=== PATIENT | male | born 1980 | race Caucasian/White ===

== ENCOUNTER 2020-04-12 06:23 | Emergency (ER) | payer OTHER, SELFPAY ==
[2020-04-12 06:24] VITALS: BP 126/90; PULSE 86; RESP 16; TEMP 36.4; O2SAT 99; BMI 24.7
--- NOTE | 2020-04-12 06:40 | ED.VISSUMM ---
- ER Visit Summary Date of Service: 04/12/20 Chief Complaint: Rash History of Present Illness: The patient is a 39 M with no primary care physician. He reports that he has a rash on his hands that began 2 weeks ago. States that it itches horribly. He believes that this is from exposure to poison harper on wood that he was cutting at work. Patient denies any change in soap, shampoo, laundry detergent, or fabric softener. No new clothing, bedding, carpeting, or pets. No new medications in the past month. Patient lives at home with his . She does not have a rash. He denies any constitutional symptoms. No fever, chills, nausea, or vomiting. Physical Examination: Vitals: Stable. Afebrile. General: Well-nourished and well-developed. Head: Normocephalic atraumatic. Neck: Supple, no lymphadenopathy. No JVD. Nontender. Cardiovascular: Regular rate and rhythm. No murmurs. Respiratory: No respiratory distress. Clear to auscultation bilaterally. Abdominal: Soft, nontender, nondistended, normal bowel sounds. No guarding, rebound, or peritoneal signs. Back: Nontender. Extremities: Nontender, no edema. Skin: Multiple 1 to 2 mm scabbed lesions to the back of both hands. These are not in between his digits. There is no burrowing. This does not look typical of scabies. Only extends up to the wrist bilaterally. He has minimal erythema to his maxilla bilaterally.. Neurologic: Alert and oriented ?3. Cranial nerves II through XII are intact. Normal strength and sensation. Psych: Normal affect. Emergency Department Course and Treatment: Had a prolonged discussion the patient this time I cannot tell him exactly what this is from. He is given a dose of Kenalog IM. He is instructed to get new gloves for work. He is instructed to wash his face mask. Treatment Plan: Patient will be discharged instructions to follow-up with Dr. Knutson in 1 week if not improving. Return to the emergency department for any worsening symptoms. Disposition: To home in improved and stable condition. Impression: 1 1. Contact dermatitis. This note was generated with [employer] dictation software. It may contain incorrect words, spelling, and punctuation that were not noted in review of the chart prior to signing ED Disposition - Plan for ED Patient: Instructions: ED Dermatitis Poison [place] Referrals: Cori Knutson MD [STAFF PHYSICIAN] - 1 Week if not improving
[2020-04-12] MEDS: Triamcinolone Acetonide 40 MG/ML Vial 80 MG IM (06:47)
[2020-04-12 06:50] VITALS: RESP 16
== END 2020-04-12 07:34 | disposition home or self-care (01) ==
LOC: ED 07:16
PROVIDERS: Emergency Provider Emergency Medicine
DX: L25.9 Unspecified contact dermatitis, unspecified cause (principal); Z72.0 Tobacco use
CPT/HCPCS: 96372; 99282

== ENCOUNTER 2020-05-10 06:58 | Emergency (ER) | payer OTHER, SELFPAY ==
[2020-05-10 06:59] VITALS: BP 129/85; PULSE 84; RESP 16; TEMP 36.4; O2SAT 100; BMI 24.2
--- NOTE | 2020-05-10 07:11 | ED.DCSUM_ITS ---
History of Present Illness Chief Complaint: Rash Informant: Patient, Family Onset: Days - 1-2 Context: Sudden Onset Timing: Waxes and wanes Quality: itchy red rash Location: trunk and groin Current Severity: Moderate Maximum Severity: Moderate Worsened by: nothing known Relieved by: benadryl temporarily Associated Symptoms: none; no swelling, sob, trouble swallowing, pain, lightheaded/syncope Narrative: Patient has had a rash that has been responding to Benadryl, it has been off and on for the last couple days. No known exposures. He has not been in poison [place]i and is not quite as itchy as poison tomi was in the past, denies any new soaps or shampoos, laundry detergents, etc. No topicals in this area. States he woke up with it one morning. The next day he suddenly had it while he was playing video games. Nothing new today, just keeps coming back. Denies any symptoms of anaphylaxis. Past Medical History - Allergies and Home Meds Allergies/Adverse Reactions: Allergies No Known Allergies Allergy (Verified 04/12/20 06:27) Primary Care Physician: Care Physician,No Primary [Primary Care Provider] - Past Medical History: None Lives: With Family Smoking Status: Current every day smoker Review of Systems General: Denies: Chills, Fever, Sweats Eyes: Denies: Visual changes - bilaterally, Diplopia ENT: Denies: Rhinorrhea, Sore throat Cardiovascular: Denies: Chest pain, Palpitations Respiratory: Denies: Dyspnea, Cough, Dyspnea on exertion Gastrointestinal: Denies: Abdominal pain, Nausea, Vomiting, Diarrhea, Melena, Hematochezia Genitourinary: Denies: Dysuria, Hematuria, Frequency Musculoskeletal: Denies: Back pain, Extremity Pain Skin: Reports: Rash. Denies: Wounds Neurological: Denies: Headache, Weakness, Numbness Physical Exam Vital Signs/Narrative: Vital Signs Temp Pulse Resp BP Pulse Ox 05/10/20 06:59 97.6 F L 84 16 129/85 H 100 Inital Vital Signs reviewed: Yes General: Well nourished, Well developed, No Acute Distress Head: Normocephalic, Atraumatic Eyes: Perrl, EOMI ENT: Moist mucous membranes, No rhinorrhea, - - No angioedema. No stridor. No hoarseness. Neck: Supple, Nontender Cardiovascular: Regular rate, Regular rhythm. Negative for: Tachycardia Respiratory: No distress, CTA bilaterally Extremities: Nontender, No edema Skin: Normal color, No Trauma, Rash - Scattered urticaria chest, less on abdomen, some on low back. Blanching, nontender, some raised, no other lesions or bullae/petechia. Neurological: Alert, Oriented x3, Cranial nerves II-XII grossly intact, Normal Strength, Normal Sensation, Normal Gait Psychological: Normal affect, Normal Mood Diagnostic/Tx/Re-eval - Medical Decision Making Patient states he will use Benadryl as needed, he is okay with starting prednisone now given a prescription, advised to follow-up if he has persistent recurrence. Etiology is unknown but he is not having any signs or symptoms of an anaphylactoid reaction. ED Disposition - Plan for ED Patient: Disposition: Home or Assisted Living Diagnosis: Allergic reaction, Urticaria Instructions: ED URTICARIA Prescriptions: Prednisone [Deltasone] 40 mg PO DAILY #10 tab Transmission Status: Pending to [facility]30 Referrals: Doctor,Your [STAFF PHYSICIAN] - 1 Week if not improving
[2020-05-10] MEDS: predniSONE 20 MG Tablet 40 MG PO (07:30)
== END 2020-05-10 07:35 | disposition home or self-care (01) ==
LOC: ED 07:25
PROVIDERS: Emergency Provider Emergency Medicine
DX: L50.0 Allergic urticaria (principal); F17.200 Nicotine dependence, unspecified, uncomplicated
CPT/HCPCS: 99282

== ENCOUNTER 2021-06-29 18:35 | Emergency (ER) | payer OTHER, SELFPAY ==
[2021-06-29 18:35] VITALS: BP 114/78; PULSE 86; PULSE 89; RESP 16; TEMP 36.8; O2SAT 98; O2SAT 99; BMI 22.1
--- NOTE | 2021-06-29 19:30 | CM.ED ---
NOEMI Note Referral Source: Case Find Referral Reason: No PCP (Primary Care Provider) NOEMI met with patient. He reports he is currently in the and has insurance. Patient said that he also has insurance through his employer. NOEMI provided patient with list of [facility] Physician Directory with active Medical staff. No further issues or needs identified at this time. NOEMI remains available. Plan: Provided patient with list of [facility] Physician Directory Daniella GRIER
--- NOTE | 2021-06-29 20:44 | EDS_ITS ---
HPI History of Present Illness Chief Complaint: Rash Informant: patient Narrative Narrative: Patient is a 40-year-old male without any significant past medical history presenting with rash to his neck and face as well as right elbow pain. Patient states he woke up today and had redness and bumps on his neck and up to his right cheek. Earlier he had some swelling and redness of his left eyelid area. Patient denies any associated pain. He denies any fever or chills. He never had a reaction like this before. Denies any new soaps or clothing. His recommend he come to the emergency room for further evaluation. Patient states that he once had hives on his abdomen that he took Benadryl for but they never found the reason of his hives. Patient denies any associated itching. In addition he notes he has had worsening pain of his right elbow for the past 2 weeks. 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 He intermittently takes ibuprofen with some relief of his pain. He denies associated numbness or tingling everyone told does get pain that radiates from his elbow down to his hand. No associated rash to the arm. No new injury. No swelling noted. No other complaints at this time. [facility] Medical History (Updated 06/29/21 @ 20:[address] Estefania Lorenzo, ) History of broken finger History of broken nose Home Medications prednisone 40 mg PO DAILY #8 tab 06/29/21 [Rx Last Taken Unknown] Allergy/AdvReac Type Severity Reaction Status Date / Time No Known Allergies Allergy Verified 06/29/21 19:21 Surgical History (Updated 06/29/21 @ 19:19 by Georgie Haile) [place] teeth removed Social History Smoking Status: Current every day smoker tobacco type: cigarettes ROS ROS ED Constitutional Constitutional ED: Denies chills or fever(s) Eyes Eyes: Denies blurry vision or change in vision ENT ENT ED: Denies ear pain, rhinorrhea or sore throat Cardiovascular Cardiovascular: Denies chest pain or palpitations Respiratory/Chest Respiratory/Chest: Denies cough or dyspnea Gastrointestinal Gastrointestinal: Denies abdominal pain, nausea or vomiting Musculoskeletal Musculoskeletal: Reports arthralgias; Denies myalgias Integumentary Reports rash Neurologic Neurologic: Denies headache(s) or weakness EXAM Physical Exam Const Vital Signs: 06/29/21 18:35 Temperature 98.3 F Temperature Source Temporal Pulse Rate 86 Respiratory Rate 16 Blood Pressure 114/78 Blood Pressure Mean 90 Pulse Ox 99 Oxygen Delivery Method Room Air Positive well nourished and well developed General Appearance ED: well developed HEENT Reports TM's clear and moist mucous membranes Tympanic Membrane ED: Yes TM's clear Eyes PERRL and EOMs intact bilaterally Neck no lymphadenopathy and supple General: Negative for tenderness Chest Wall inspection of chest normal Resp normal respiratory effort and clear to auscultation bilaterally Cardio regular rate, regular rhythm and no murmurs GI normal to inspection, nondistended, normoactive bowel sounds Back/Spine no CVA tenderness Extremity Extremity Narrative: Right elbow?no deformity. Patient with tenderness palpation just medial to the radial head. Worse with repetitive movements. No joint effusion appreciated. No decreased range of motion. No pinpoint bony tenderness. Normal strength and sensation of the right upper extremity. General Extremety ED: Yes tenderness; Negative for edema General Extremity: Negative for edema Neuro oriented x3 and no sensory deficits noted Sensorium / Orientation: alert Motor Exam: Negative for general weakness Psych mental status grossly normal Skin Skin Narrative: No petechia. Negative Nikolsky sign. Rash is most consistent with the allergic dermatitis. Rashes: rashes noted face maculopapular 4 right cheek erythematous dry nontender, neck, cheek Narrative: Scattered papular raised erythematous rash, nontender MDM MDM MDM Narrative Medical decision making narrative: Patient evaluated for rash x1 day on his bilateral neck and right cheek. He is also had 2 weeks of right elbow pain. Worse with passive movements. Rash appears to be some type of allergic reaction. He does not have any mucosal involvements. No petechia negative Nikolsky sign. He is afebrile. The rash is not consistent with an infection. In addition patient likely has lateral epicondylitis of the right elbow. Patient is started on a course of steroids which should help with both. He is counseled that he can use hydrocortisone ointment to his face and neck. Counseled on return precautions. Patient verbalizes agreement understand with this plan. Patient with a work note per her request. Discharge Plan Triage Chief Complaint: Rash ED Provider: Estefania Lorenzo Dx/Rx/DC Orders Clinical Impression: Rash of face, Rash of neck, Elbow pain, right Instructions: ED General Allergic Reactions, ED Contact Dermatitis, ED Tennis Elbow Prescriptions: New prednisone 20 mg tablet 40 mg PO DAILY Qty: 8 RF: 0 Primary Care Provider: Care Physician,No Primary Referrals: Owen Greenberg MD [STAFF PHYSICIAN] - Chapito Pitts MD [STAFF PHYSICIAN] - Care Physician,No Primary [Primary Care Provider] - Disposition Disposition: Home, Self Care Discharge Date/Time: 06/29/21 20:59
[2021-06-29] MEDS: predniSONE 20 MG Tablet 40 MG PO (20:49)
== END 2021-06-29 20:59 | disposition home or self-care (01) ==
PROVIDERS: Emergency Provider Emergency Medicine
DX: R21 Rash and other nonspecific skin eruption (principal); M25.521 Pain in right elbow; F17.210 Nicotine dependence, cigarettes, uncomplicated
CPT/HCPCS: 99283

== ENCOUNTER 2021-09-04 19:41 | Emergency (ER) | payer OTHER, SELFPAY ==
[2021-09-04 19:42] VITALS: BP 123/76; PULSE 89; RESP 16; TEMP 36.3; O2SAT 99; BMI 22.6
--- NOTE | 2021-09-04 22:18 | EDS_ITS ---
HPI History of Present Illness Chief Complaint: Upper Extremity Injury Informant: patient Occured/Mechanism Comment: Ongoing issue of right elbow pain. 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 He complains of pain because of intermittent persistent waxing and waning right elbow pain. He states he was seen at [facility] and had x-rays and was told there is no acute abnormality noted. He denies paresthesia, anesthesia or motor weakness. Tetanus Immunization: 5-10 years Prior similar symptoms: Yes Recent Illness/Hospitalization: No [facility] Medical History History of broken finger History of broken nose HLD (hyperlipidemia) Home Medications atorvastatin 10 mg PO DAILY 09/04/21 [History Last Taken Unknown] naproxen 500 mg PO BID #20 tab 09/04/21 [Rx Last Taken Unknown] Allergy/AdvReac Type Severity Reaction Status Date / Time No Known Allergies Allergy Verified 09/04/21 19:44 Surgical History [place] teeth removed Social History (Updated 09/04/21 @ 22:[address] Levi Mitchell MD) household members: significant other Smoking Status: Current every day smoker tobacco type: cigarettes alcohol intake: current alcohol intake frequency: other substance use type: does not use ROS ROS ED Constitutional Constitutional ED: Denies chills, fever(s), subjective or sweats Eyes Eyes: Denies blurry vision, change in vision or diplopia Musculoskeletal Musculoskeletal: Reports other Details: Right elbow pain ; Denies back pain, myalgias or neck pain Integumentary Denies rash Neurologic Neurologic: Denies paresthesias or weakness Hematologic/Lymphatic Hematologic/Lymphatic: Denies easy bleeding or easy bruising EXAM Physical Exam Const Vital Signs: 09/04/21 19:42 Temperature 97.4 F L Temperature Source Temporal Pulse Rate 89 Respiratory Rate 16 Blood Pressure 123/76 H Blood Pressure Mean 91 Pulse Ox 99 Oxygen Delivery Method Room Air Positive well nourished and well developed General Appearance ED: well developed and NAD HEENT normocephalic and atraumatic Eyes PERRL and EOMs intact bilaterally Neck No full ROM and supple Resp normal respiratory effort Cardio regular rate and regular rhythm Extremity normal to inspection and full ROM Extremity Narrative: Having the patient flex against resistance causes no discomfort. Having him since pronate against resistance causes minimal discomfort. Pressure over the lateral epicondyle with patient flexing and pronating its resistance causes him exquisite pain and reproduces his pain. Median, radial and ulnar function intact. Radial pulses palpable. General Extremety ED: Negative for edema General Extremity: Negative for edema Neuro oriented x3, CN's II-XII intact bilaterally and no focal motor deficits Sensorium / Orientation: alert Psych mental status grossly normal Skin Lesions: no lesions Rashes: no rashes Trauma: no lacerations or abrasions MDM MDM MDM Narrative Medical decision making narrative: Patient had imaging at outside facility. This would not repeated. Patient's history and physical exam suggest lateral epicondylitis. Patient has no contraindication to NSAIDs. Discharge Plan Triage Chief Complaint: Upper Extremity Injury ED Provider: Levi Mitchell Dx/Rx/DC Orders Clinical Impression: Lateral epicondylitis, right elbow Instructions: ED Tennis Elbow Prescriptions: New naproxen 500 MG tablet 500 mg PO BID Qty: 20 RF: 0 No Action atorvastatin 10 mg tablet 10 mg PO DAILY RF: 0 Primary Care Provider: Care Physician,No Primary Referrals: Care Physician,No Primary [Primary Care Provider] - Doctor,Your [STAFF PHYSICIAN] - 10-14 Days if not better Activity Restrictions/Additional Instructions: 1. Recommended purchasing van from pharmacy for tennis elbow. 2. Take Naprosyn as instructed 3. If no improvement in 7 days contact [facility] for [facility] to [facility]. Disposition Disposition: Home, Self Care
[2021-09-04] MEDS: Naproxen 250 MG Tablet 500 MG PO (22:38)
[2021-09-04 22:41] VITALS: BP 118/54; PULSE 74; RESP 16; O2SAT 98
== END 2021-09-04 22:45 | disposition home or self-care (01) ==
PROVIDERS: Emergency Provider Emergency Medicine
DX: M77.11 Lateral epicondylitis, right elbow (principal); E78.5 Hyperlipidemia, unspecified; F17.210 Nicotine dependence, cigarettes, uncomplicated; Z79.899 Other long term (current) drug therapy; Z79.1 Long term (current) use of non-steroidal anti-inflammatories (NSAID)
CPT/HCPCS: 90471; 99284

== ENCOUNTER 2022-02-04 22:08 | Emergency (ER) | payer OTHER, SELFPAY ==
[2022-02-04 22:09] VITALS: BP 114/82; PULSE 82; RESP 15; TEMP 35.8; O2SAT 97; BMI 22.6
--- NOTE | 2022-02-04 22:27 | EX.ED.DYSGE1 ---
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 He states he also has a few lesions on his face and his neck. He states no one else at home has the rash. He denies any fevers chills difficulty breathing or swallowing. He states he has had this happen in the past and has needed steroids to resolve the symptoms and secondary to this presents for evaluation. [facility] Medical History History of broken finger History of broken nose HLD (hyperlipidemia) Home Medications atorvastatin 10 mg PO DAILY 09/04/21 [History Last Taken Unknown] naproxen 500 mg PO BID #20 tab 09/04/21 [Rx Last Taken Unknown] prednisone 10 mg PO DAILY 12 Days #30 tab 02/04/22 [Rx Last Taken Unknown] Allergy/AdvReac Type Severity Reaction Status Date / Time No Known Allergies Allergy Verified 02/04/22 22:13 Surgical History [place] teeth removed Social History (Updated 09/04/21 @ 22:[address] Levi Mitchell MD) household members: significant other Smoking Status: Current every day smoker tobacco type: cigarettes alcohol intake: current alcohol intake frequency: other substance use type: does not use ROS ROS ED Constitutional Constitutional ED: Denies chills or fever(s) ENT ENT ED: Denies sore throat Cardiovascular Cardiovascular: Denies chest pain Respiratory/Chest Respiratory/Chest: Denies cough or dyspnea Gastrointestinal Gastrointestinal: Denies abdominal pain, diarrhea, nausea or vomiting Genitourinary Genitourinary ED: Denies dysuria Musculoskeletal Musculoskeletal: Denies myalgias Integumentary Reports rash Neurologic Neurologic: Denies headache(s) Hematologic/Lymphatic Hematologic/Lymphatic: Denies easy bleeding or easy bruising EXAM Physical Exam Const Vital Signs: 02/04/22 22:09 Temperature 96.5 F L Temperature Source Temporal Pulse Rate 82 Respiratory Rate 15 Blood Pressure 114/82 H Blood Pressure Mean 92 Pulse Ox 97 Oxygen Delivery Method Room Air Positive well nourished and well developed General Appearance ED: well developed HEENT Reports moist mucous membranes HEENT Narrative: No tongue or lip swelling no oral lesions no airway edema or compromise Eyes PERRL and EOMs intact bilaterally Neck supple Resp normal respiratory effort and clear to auscultation bilaterally Cardio regular rate and regular rhythm Extremity normal to inspection Neuro oriented x3 and CN's II-XII intact bilaterally Sensorium / Orientation: alert Motor Exam: strength 5/5 throughout Psych mental status grossly normal Skin Skin Narrative: Patient has a erythematous blanchable rash located to the dorsal aspect of his bilateral hand/wrist. There is similar lesions noted to his posterior neck and right sided face. There is no involvement of the palms or soles. No surrounding inflammatory changes to suggest infection. MDM MDM MDM Narrative Medical decision making narrative: Patient presented to the ER and in no acute distress with stable vitals. His history and exam is consistent with a contact dermatitis. As he does not have respiratory distress there is no need for emergent intervention. Patient be placed on a prednisone taper secondary to the contact dermatitis but is otherwise safe for discharge. Discharge Plan Triage Chief Complaint: Allergic Reaction ED Provider: Meir Thompson Dx/Rx/DC Orders Clinical Impression: Contact dermatitis Instructions: ED Contact Dermatitis Prescriptions: New prednisone 10 mg tablet 10 mg PO DAILY 12 Days Qty: 30 RF: 0 No Action atorvastatin 10 mg tablet 10 mg PO DAILY RF: 0 naproxen 500 MG tablet 500 mg PO BID Qty: 20 RF: 0 Primary Care Provider: Care Physician,No Primary Referrals: Jimmie Nguyen MD [STAFF PHYSICIAN] - 1 Week if not improving Care Physician,No Primary [Primary Care Provider] - Disposition Disposition: Home, Self Care
[2022-02-04] MEDS: Triamcinolone Acetonide 40 MG/ML Vial 80 MG IM (22:39)
== END 2022-02-04 23:10 | disposition home or self-care (01) ==
PROVIDERS: Emergency Provider Emergency Medicine; Visit Provider Emergency Medicine
DX: L25.9 Unspecified contact dermatitis, unspecified cause (principal); E78.5 Hyperlipidemia, unspecified; F17.210 Nicotine dependence, cigarettes, uncomplicated
CPT/HCPCS: 96372; 99282

== ENCOUNTER 2024-07-06 21:51 | Emergency (ER) | payer BC, SELFPAY ==
[2024-07-06 21:52] VITALS: BP 121/81; PULSE 87; RESP 16; TEMP 36.2; O2SAT 98; BMI 24.7
--- NOTE | 2024-07-06 22:08 | EDS_ITS ---
HPI History of Present Illness Chief Complaint: Back Detail of Chief Complaint: Bilateral low back pain Informant: patient Onset/Context/Timing Onset: Days Context: Sudden Onset Chronic pain exacerbated by: Movement Injury: - (Patient denies injury) Timing: Continuous Quality: - (It feels like there is a piece of metal in my back .) Location: Lumbar Current Severity: Mild Maximum Severity: Moderate Worsened by: improves with Movement and Bending Relieved by: Nothing Associated Symptoms Associated Symptoms: - (There is no saddle paresthesia or anesthesia. There is no foot drop.); Negative for Numbness, Tingling, Radiation to Right Leg, Radiation to Left Leg, Fever, Abdominal Pain, Dysuria, Unable to Ambulate, Unable to Transfer, Urinary Retention, Urinary Incontinence, Constipation or Fecal Incontinence Narrative Narrative: Patient is a 43-year-old thin male who appears in no discomfort. He is sitting awkwardly in a chair. He got up quite rapidly from the chair. He denies radicular pain. He denies bowel bladder dysfunction. I set denies foot drop. There is no history of direct trauma or indirect trauma. Please review associated symptoms. There were none. Furthermore there is no history of recent dental procedure. Prior similar symptoms: Yes Recent Illness/Hospitalization: No PFSH PFSH Medical History Inguinal hernia HLD (hyperlipidemia) History of broken nose History of broken finger Home Medications ?Medication ?Instructions ?Recorded ?Last Taken ?Type atorvastatin 10 mg tablet 10 mg PO DAILY 09/04/21 Unknown History naproxen 500 mg tablet 500 mg PO BID #20 tabs 09/04/21 Unknown Rx prednisone 10 mg tablet 10 mg PO DAILY 12 days #30 tabs 02/04/22 Unknown Rx naproxen 500 mg tablet 500 mg PO BID #14 tabs 07/06/24 Unknown Rx Allergy/AdvReac Type Severity Reaction Status Date / Time animal dander Allergy Mild sneezing Verified 07/06/24 21:51 Surgical History [place] teeth removed Social History household members: significant other Smoking Status: Current every day smoker tobacco type: cigarettes alcohol intake: current alcohol intake frequency: other substance use type: does not use ROS ROS ED Constitutional Constitutional ED: Denies chills, fever(s), subjective or sweats Gastrointestinal Gastrointestinal: Denies abdominal pain, constipation, diarrhea, melena, nausea or vomiting Genitourinary Genitourinary ED: Denies dysuria, hematuria or urinary frequency Musculoskeletal Musculoskeletal: Reports back pain; Denies arthralgias, myalgias or neck pain Integumentary Denies rash Psychiatric Psychiatric: Denies anxiety or depression Hematologic/Lymphatic Hematologic/Lymphatic: Denies easy bleeding or easy bruising EXAM Physical Exam Const Vital Signs: 07/06/24 21:52 Temperature 97.1 F L Temperature Source Temporal Pulse Rate 87 Respiratory Rate 16 Blood Pressure 121/81 H Blood Pressure Mean 94 Pulse Ox 98 Oxygen Delivery Method Room Air Positive well nourished and well developed General Appearance ED: well developed and NAD HEENT Reports moist mucous membranes HEENT Narrative: HEENT exam is unremarkable. Eyes PERRL and EOMs intact bilaterally General Eye ED: Negative for pale conjunctiva or scleral icterus Neck no lymphadenopathy, supple and no JVD Resp normal respiratory effort and clear to auscultation bilaterally Cardio regular rate, regular rhythm, S1 normal heart sound, S2 normal heart sound and no murmurs GI normal to inspection, nondistended, normoactive bowel sounds, soft to palpation, non-tender, non-distended and no masses Back/Spine normal to inspection Back/Spine Narrative: Tenderness noticed noted right and left paralumbar region. Patella and ankle reflex are 1-2+. There is no clonus Babinski sign. EHLs intact. Gait observed and no foot drop on heels and toes. Able to perform 1 legged squat right and left. Normal sensation L3-S1 dermatome. DP and PT pulse are palpable. Lumbar Spine / Lower Back: straight leg raise negative bilaterally; Negative for ROM limited Extremity normal to inspection and no clubbing, cyanosis or edema Neuro oriented x3 and no sensory deficits noted Sensorium / Orientation: alert Motor Exam: strength 5/5 throughout Deep Tendon Reflexes: Rt Patellar (L4): 1+, Lt Patellar (L4): 1+, Rt Ankle (S1): 1+ and Lt Ankle (S1): 1+ Deep Tendon Reflexes Back: Rt Patellar (L4): 1+, Lt Patellar (L4): 1+, Rt Ankle (S1): 1+ and Lt Ankle (S1): 1+ Plantar Reflex: Downgoing: bilateral Psych mental status grossly normal Skin no rashes or lesions noted and no wounds MDM MDM MDM Narrative Medical decision making narrative: Patient has muscular pain. His history and physical not consistent for cauda equina syndrome,, epidural abscess or spontaneous hematoma. Patient has muscular pain. Will treat with NSAID since there is no contraindication. Patient asked for a work excuse. He was informed that I will gladly give him a note with his restrictions. Discharge Plan Triage Chief Complaint: Back ED Provider: Levi Mitchell Dx/Rx/DC Orders Clinical Impression: Acute lumbar myofascial strain, Elevated blood-pressure reading, without diagnosis of hypertension Instructions: ED Back Sprain/Strain Prescriptions: New naproxen 500 mg tablet 500 mg PO BID Qty: 14 0RF No Action atorvastatin 10 mg tablet 10 mg PO DAILY naproxen 500 MG tablet 500 mg PO BID Qty: 20 0RF prednisone 10 mg tablet 10 mg PO DAILY 12 Days Qty: 30 0RF Rx Instructions: 4 pills by mouth days 1 through 3 3 pills by mouth days 4 through 6 2 pills by mouth days 7 through 9 1 pill by mouth days 10 through 12 Primary Care Provider: Gilberto Burnette Referrals: Gilberto Burnette MD [Primary Care Provider] - 1 Week if not improving Activity Restrictions/Additional Instructions: 1. Apply ice for 30 minutes per application 6-10 times a day 2. No lifting anything greater than 10 pounds, avoid bending. 3. If you are unable to urinate, have loss of bowel control, have numbness in your buttocks area or you dragging a foot return to the emergency department Print Language: Nepali Disposition Disposition: Home, Self Care
[2024-07-06] MEDS: Naproxen 500 MG Tablet PO (22:22)
== END 2024-07-06 22:30 | disposition home or self-care (01) ==
LOC: ED 22:29
PROVIDERS: Emergency Provider Emergency Medicine; PCP Family Medicine; Visit Provider Emergency Medicine
DX: S39.012A Strain of muscle, fascia and tendon of lower back, initial encounter (principal); X58.XXXA Exposure to other specified factors, initial encounter; R03.0 Elevated blood-pressure reading, without diagnosis of hypertension; E78.5 Hyperlipidemia, unspecified; F17.210 Nicotine dependence, cigarettes, uncomplicated; G89.29 Other chronic pain; Z79.899 Other long term (current) drug therapy
CPT/HCPCS: 99282